=== PATIENT | male | born 1950 | race Caucasian/White ===

== ENCOUNTER 2018-06-11 11:19 | Outpatient (REF) | payer MEDICARE, OTHER, SELFPAY ==
[2018-06-11 19:49] LABS: Anion Gap 5.2 mmol/L (3-11); BUN 17 mg/dL (7-18); CO2 29.8 mmol/L (21.0-32.0); CREATININE 1.12 mg/dL (0.70-1.30); Calcium 9.3 mg/dL (8.5-10.1); Chloride 95 mmol/L (98-107); Glucose 123 mg/dL (70-100); Sodium 130 mmol/L (136-145)
== END 2018-06-11 11:20 ==
LOC: NCHCN 11:19
PROVIDERS: PCP Internal Medicine; Visit Provider Physician Assistant Medical
DX: I10 Essential (primary) hypertension (principal)
CPT/HCPCS: 80048

== ENCOUNTER 2019-05-29 13:14 | Outpatient (CLI) | payer MEDICARE, OTHER, SELFPAY ==
--- NOTE | 2019-05-29 13:50 | DI.RAD_ITS ---
SYMPTOMS/DIAGNOSIS: HIP LOCKING UP, LEFT HIP PAIN, M25.552, ? OSTEOARTHRITIS, M16.12 LEFT HIP AND PELVIS: Three views were obtained. There are prominent hypertrophic degenerative changes involving the lower lumbar spine with bilateral SI joint degenerative changes noted as well. There is mild narrowing of the cartilaginous joint spaces of both hips. Mild acetabular spurring noted bilaterally. No other significant bony abnormality seen. CONCLUSION: Mild DJD, both hips.
== END 2019-05-29 13:34 ==
PROVIDERS: PCP Internal Medicine; Visit Provider Chiropractor
DX: M25.552 Pain in left hip (principal); M16.0 Bilateral primary osteoarthritis of hip; M53.3 Sacrococcygeal disorders, not elsewhere classified
CPT/HCPCS: 73502

== ENCOUNTER 2019-07-09 15:43 | Outpatient (REF) | payer MEDICARE, OTHER, SELFPAY ==
[2019-07-09 20:18] LABS: Anion Gap 12.7 mmol/L (3-11); BUN 12 mg/dL (7-18); CO2 23.3 mmol/L (21.0-32.0); CREATININE 1.08 mg/dL (0.70-1.30); Calcium 9.8 mg/dL (8.5-10.1); Chloride 96 mmol/L (98-107); Glucose 110 mg/dL (70-100); Potassium 3.8 mmol/L (3.5-5.1); Sodium 132 mmol/L (136-145)
== END 2019-07-09 16:03 ==
LOC: NCHCN 15:43
PROVIDERS: PCP Internal Medicine; Visit Provider Nurse Practitioner Family
DX: I10 Essential (primary) hypertension (principal)
CPT/HCPCS: 80048

== ENCOUNTER 2020-04-05 18:35 | Outpatient (REF) | payer MEDICARE, OTHER, SELFPAY ==
[2020-04-05 20:10] LABS: ALT 40 U/L (16-63); AST 26 U/L (15-37); Alkaline Phosphatase 102 U/L (46-116); Anion Gap 7.1 mmol/L (3-11); BUN 15 mg/dL (7-18); Bilirubin, Total 0.8 mg/dL (0.2-1.0); CO2 27.9 mmol/L (21.0-32.0); CREATININE 1.01 mg/dL (0.70-1.30); Calcium 9.6 mg/dL (8.5-10.1); Chloride 97 mmol/L (98-107); Glucose 136 mg/dL (74-106); Potassium 3.9 mmol/L (3.5-5.1); Sodium 132 mmol/L (136-145); Total Protein 7.2 g/dL (6.4-8.2)
== END 2020-04-05 18:55 ==
LOC: NCHCN 18:35
PROVIDERS: PCP Internal Medicine; Visit Provider Nurse Practitioner Family
DX: I10 Essential (primary) hypertension (principal)
CPT/HCPCS: 80053

== ENCOUNTER 2020-05-11 12:35 | Outpatient (REF) | payer MEDICARE, OTHER, SELFPAY ==
[2020-05-11 19:27] LABS: Sodium 134 mmol/L (136-145)
== END 2020-05-11 12:55 ==
LOC: NCHCN 12:35
PROVIDERS: PCP Nurse Practitioner Family; Visit Provider Nurse Practitioner Family
DX: Z72.89 Other problems related to lifestyle (principal)
CPT/HCPCS: 84295

== ENCOUNTER 2020-10-25 08:55 | Day surgery (SDC) | payer MEDICARE, OTHER, SELFPAY ==
[2020-10-25 09:07] VITALS: BP 146/86; PULSE 74; RESP 17; TEMP 36.4; O2SAT 98
[2020-10-25] MEDS: Tropicam./Phenyleph. (1/2.5%) 5 ML BTL OD ×3 (09:22→09:36)
[2020-10-25] MEDS: Tetracaine 0.5% 4 ML BTL OD (10:19)
[2020-10-25] MEDS: Povidone-Iodine Ophth 30 ML BTL (10:20)
[2020-10-25] MEDS: Lidocaine 2% Jelly 6 ML SYR (10:20)
[2020-10-25] MEDS: Lidocaine 1% Pres-Free 5 ML VIAL (10:28)
[2020-10-25] MEDS: Balanced Salt Soln.-PLUS 500 ML BAG (10:33)
[2020-10-25] MEDS: Duovisc Viscoelastic System EACH 1 EACH (10:34)
--- NOTE | 2020-10-25 10:59 | W.PM.DSUDISC ---
Discharge Plan Disposition Patient Disposition: HOME Condition: Good Discharge Details Attending Provider: Gigi Alan Primary Care Provider: Damon Cunha Meds and New Rx's Prescriptions: No Action carvedilol 25 MG tablet 25 mg PO BID RF: 0 spironolactone 25 MG tablet 50 mg PO DAILY RF: 0 hydrochlorothiazide 12.5 MG tablet 25 mg PO DAILY RF: 0 multivitamin Tablet 1 tab PO DAILY RF: 0 amlodipine 10 mg Tablet 10 mg PO DAILY RF: 0 lovastatin 20 mg Tablet 20 mg PO QPM RF: 0 albuterol sulfate [ProAir HFA] 90 mcg/actuation Hfa Aerosol Inhaler 1 - 2 puff INHALATION DIRECTED RF: 0 diphenhydramine-acetaminophen [Tylenol PM Extra Strength] 25-500 mg Tablet 2 tab PO QHS PRNRF: 0 Spiriva with HandiHaler 18 mcg Capsule, W/Inhalation Device 1 cap INHALATION DAILY RF: 0 budesonide-formoterol [Symbicort] 160-4.5 mcg/actuation Hfa Aerosol Inhaler 2 puff INHALATION BID RF: 0 omeprazole 20 mg Tablet,Delayed Release (Dr/Ec) 20 mg PO DAILY RF: 0 cephalexin [Keflex] 500 mg Capsule 500 mg PO TID RF: 0 Discharge Instructions Stand Alone Forms: Post-op Topical Cataract Discharge Orders Discharge Orders: Discharge Order (Routine); Ordered 10/25/20 Ordered By: Gigi Alan DS: Diagnosis Discharge Diagnosis (1) Posterior subcapsular age-related cataract, right eye: Status: Resolved (2) Nuclear sclerotic cataract of right eye: Status: Resolved (3) Cortical cataract of right eye: Status: Resolved
--- NOTE | 2020-10-25 11:00 | W.PM.OP ---
Date of service: 10/25/20 Time of Service: 11:01 Operative Note Operative Note DATE OF PROCEDURE: 10/25/20 PRE-OP DIAGNOSIS: Nuclear/cortical/posterior subcapsular cataract, right eye Poorly dilating pupil, right eye POST-OP DIAGNOSIS: same PROCEDURE: 1. Cataract extraction by phacoemulsification with intraocular lens implantation, right eye, with pupillary expansion device SURGEON: Gigi Alan ANESTHESIA: MAC (with local sub-tenon's anesthetic injection) PATHOLOGY: none sent COMPLICATIONS: None Patient was transported to: same day Patient's condition: stable Implants: [employer] / [employer] Tecnis [id number] Indications: Progressive decreased vision due to cataract, right eye, with poorly dilating pupil Procedure Description: CATARACT SURGERY OPERATIVE REPORT PREOPERATIVE DIAGNOSIS: 1. Nuclear/cortical/posterior subcapsular cataract, right eye 2. Poorly dilating pupil, right eye POSTOPERATIVE DIAGNOSIS: Same OPERATION: 1. Cataract extraction using phacoemulsification with posterior chamber intraocular lens implant, right eye. 2. Pupillary dilation and iris stabilization using Malyugin Ring IOL: IOL Air Traffic Control Supervisor/Model: [employer] Marquis / VINCENT Tecnis [id number] IOL Power: + 23.0 diopters IOL Serial Number: [id number] Optic Diameter: 6.0mm Haptic/Overall Diameter: 13.0mm PHACO INFO: [employer] Technologiesurion Vision System with OZil and Active Fluidics Cumulative Dispersed Energy (CDE): 14.39 seconds SURGEON: Gigi Alan MD, ASHUTOSH ANESTHESIA: Monitored Anesthesia Care (MAC), with local sub-tenon's anesthetic infiltration COMPLICATIONS: None SPECIMENS: None INDICATIONS FOR PROCEDURE: The patient is a 69-year-old gentleman with history of progressive decreased vision in his right eye. He is noted to have a significant nuclear/cortical/posterior subcapsular cataract of the right eye. The option of cataract surgery was offered to patient and he wished to proceed. PROCEDURE: The correct surgical eye was identified and marked as the right eye and the pupil was dilated in the preoperative area using mydriatics and cycloplegics. The dilated pupil size was 4.0 mm. The patient elected to proceed without oral sedation. The patient was brought to the operating room where cardiopulmonary monitoring was instituted and surgical time-out was performed, confirming the correct operative eye and IOL power. Topical anesthesia was administered and ophthalmic povidone-iodine 5% was instilled into the conjunctival fornices. Lidocaine gel was applied to the cornea and the chacha-ocular area was prepped with Betadine 10% solution and draped in the usual sterile fashion for intraocular surgery, including an aperture drape. A Tegaderm transparent film dressing was cut in half and used to cover the lashes and lid margins. Care was taken to sequester the lashes and lid margins under the Tegaderm dressing. A lid speculum was placed between the lids of the operative eye and the Jose-Morgan operating microscope was maneuvered into position. Steve scissors were then used to make a conjunctival buttonhole approximately 6mm posterior to the limbus in the inferonasal quadrant. Blunt dissection was carried out to expose bare sclera, and a blunt-tipped sub-tenon?s anesthesia cannula was introduced and passed posteriorly along the globe where non-preserved plain lidocaine was injected into posterior sub-Tenon?s space. A sideport knife was used to make a paracentesis port inferiortemporally. Intraocular phenylephrine/lidocaine was injected in the anterior chamber. The anterior chamber was filled with Provisc. A 2.4mm keratome knife was used to create a half-thickness groove at the limbus and then to construct a three-plane near-clear corneal tunnel extending 2.0mm into clear cornea superiortemporally. A 6.25 mm Malyugin Ring was then inserted into the pupillary space and engaged with the Kuglen hook. A flap was raised on the anterior capsule and capsulorhexis forceps were used to complete a continuous curvilinear capsulorhexis of 5.0 mm. Capsule is noted to be quite thin with loose zonules. Balanced salt solution was then used to perform cortical cleaving hydrodissection and nuclear hydrodelineation until the lens could be freely rotated within the capsular bag. The lens nucleus was then disassembled and removed within the capsular bag and iris plane using phacoemulsification. Residual cortical material was removed using the 45-degree angled silicone I/A tip with 0.3mm port. The posterior capsule was carefully polished to remove as much residual lens epithelial cells as safely possible. The capsular bag was then inflated and the anterior chamber deepened with viscoelastic. The lens implant described above was inserted into the capsular bag using the VINCENT Pine Apple Injector. A Kuglen hook was used to dial the IOL into position. The Malyugin Ring was removed in the reverse order of its insertion. Residual viscoelastic was then removed first from posterior to the IOL, then from the anterior chamber using the I/A handpiece. The lens implant was noted to center nicely within the capsular bag. The incisions were stromally hydrated, and the anterior chamber was reformed using BSS. Then 0.1cc of moxifloxacin 5.0mg/ml were injected into the capsular bag and anterior chamber. The incisions were checked with a Weck spear and found to be secure. Several drops of ophthalmic povidone-iodine 5% were then applied to the eye followed by two drops of Imprimis combination prednisolone/moxifloxacin/nepafenac solution. The drapes were removed and a clear plastic protective eye shield was placed over the eye. The patient was then returned to Same Day Surgery in stable condition.
== END 2020-10-25 11:17 | disposition home or self-care (01) ==
PROVIDERS: PCP Internal Medicine; Visit Provider Ophthalmology
PROC: (CPT 66982; principal; 2020-10-25 10:45)
DX: H25.041 Posterior subcapsular polar age-related cataract, right eye (principal); H25.11 Age-related nuclear cataract, right eye; H25.011 Cortical age-related cataract, right eye; H57.09 Other anomalies of pupillary function; I10 Essential (primary) hypertension; J44.9 Chronic obstructive pulmonary disease, unspecified; K21.9 Gastro-esophageal reflux disease without esophagitis
CPT/HCPCS: 66982; V2632

== ENCOUNTER 2021-04-05 14:30 | Outpatient (REF) | payer MEDICARE, OTHER, SELFPAY ==
[2021-04-05 19:00] LABS: ALT 39 U/L (16-63); AST 27 U/L (15-37); Alkaline Phosphatase 130 U/L (46-116); Anion Gap 7.8 mmol/L (3-11); BUN 11 mg/dL (7-18); Bilirubin, Total 0.7 mg/dL (0.2-1.0); CO2 28.2 mmol/L (21.0-32.0); CREATININE 1.1 mg/dL (0.70-1.30); Calcium 9.8 mg/dL (8.5-10.1); Calculated LDL 96 mg/dL (<100); Chloride 99 mmol/L (98-107); Cholesterol 189 mg/dL (<200); Glucose 130 mg/dL (74-106); HDL Cholesterol 85 mg/dL (40-60); Potassium 4.2 mmol/L (3.5-5.1); Sodium 135 mmol/L (136-145); Total Protein 7.5 g/dL (6.4-8.2); Triglyceride 41 mg/dL (<150)
== END 2021-04-05 14:31 | disposition home or self-care (01) ==
LOC: NCHCN 14:30
PROVIDERS: PCP Internal Medicine; Visit Provider Nurse Practitioner Family
DX: I10 Essential (primary) hypertension (principal); E78.5 Hyperlipidemia, unspecified
CPT/HCPCS: 80053; 80061

== ENCOUNTER → 2022-04-18 01:22 | Outpatient (CLI) | payer MEDICARE, OTHER, SELFPAY ==
--- NOTE | 2022-04-18 11:00 | DI.NM_ITS ---
APPROVED REPORT Exam: Exercise Treadmill Patient Location: Out-Patient Room/Bed: Stress Nurse: Rosalva Kwan RN Ordering Provider:EARLENE MARTINEZ, Contact Number: [phone] BMI: 27.45 Baseline Rhythm: Sinus Rhythm Indications: DYSPNEA ON EXERTION Medical History Medical History: COPD, Former smoker, Heavy alcohol consumption, GERD, HTN Cardiac Medications: Spiriva, Spironolactone, Omeprazole, Lovastatin, Hydrochlorothiazide, Carvedilol , Symbicort, Amlodipine, Albuterol sulfate Allergies: No known drug allergies Cardiac Risk Factors: FHX of CAD, HTN, COPD, Smoking (former) Previous Cardiac Procedures: None Pretest Chest Pain Characteristics: None Exercise History: Indeterminate Physical Disabilities: Back Lung Sounds: Clear to auscultation, wheezing right lower lobe Heart Sounds: Regular Stress Test Details Test: Exercise stress testing was performed using a Jignesh protocol. Nuclear Acquisition: Rest Tc-99m/Stress Tc-99m 1 day Rest Isotope: Tc-99m Sestamibi. Dose: 9.5 Date: 04/18/2022 Injection Time: 1120 Stress Isotope: Tc-99m Sestamibi. Dose: 31.0 Date: 04/18/2022 Injection Time: 1326 HR Resting HR Supine: 67 bpm Max Heart Rate (APMHR): 148.545373 bpm Resting HR Standin bpm Target HR (85% APMHR): 125.277060 bpm Max HR Achieved: 138 bpm % of APMHR: 93.24 Recovery HR: 89 bpm HR response to stress: Normal HR response to stress Comment: Carvedilol held this AM. BP Resting BP Supine: 162/82 mmHg Resting BP Standin/84 mmHg Max BP: 184/80 mmHg Recovery BP: 158/78 mmHg BP response to stress: Normal blood pressure response to stress. ECG Resting ECG: Sinus Rhythm Ectopy: occasional PVC/PAC Stress ECG: Sinus Tachycardia ST Change: difficult to assess d/t significant artifact Arrhythmia: PVC couplet Recovery ECG: Sinus Rhythm Recovery ST Change: No significant ST segment changes noted Recovery Arrhythmia: occasional PAC Clinical Reason for Termination: Dyspnea Stress Symptoms: Dyspnea Exercise duration: 5 min24 sec Highest Stage Reached: Stage 2: 2.5 mph at 12% grade. Exercise capacity: 7.05 METs Nova Treadmill Score: 5 Rate Pressure Product: 28601 Stress ECG Conclusion 1. The resting electrocardiogram was within normal limits 2. The patient exercised on the Jignesh protocol and completed a workload of 7.05 METS, limited by shor tness of breath 3. Normal heart rate and blood pressure response to exercise. The patient achieved 98% of predicted heart rate for age 4. There was no electrocardiographic evidence of myocardial ischemia 5. There were no significant dysrhythmias 6. See MPI report Nova Treadmill Score is 5 which is Low risk. Stress Test Summary STAGE Time (mins) Speed (mph) Grade (%) HR BP SYMPTOMS METS Supine 67 162/82 Standing 84 164/84 SpO2 97% 1 3 1.7 10 118 182/90 SpO2 93% 4.6 1 min recovery 120 184/80 SpO2 97% 3 min recovery 103 180/78 6 min recovery 89 158/78 MPI Conclusion Normal myocardial perfusion without evidence of ischemia or prior infarction Reported EF is 44%. Wall motion is normal Radiologist Interpretation Radiologist Interpretation by: Damon Schaffer MD Interpretation Date/Time: 04/20/2022 16:13:44
== END ==
PROVIDERS: PCP Nurse Practitioner Family; Visit Provider Nurse Practitioner Family
DX: R06.00 Dyspnea, unspecified (principal)
CPT/HCPCS: 78452; 93017

== ENCOUNTER 2022-05-12 08:59 | Outpatient (CLI) | payer MEDICARE, OTHER, SELFPAY ==
--- NOTE | 2022-05-12 08:45 | RT.EKG_ITS ---
APPROVED REPORT Exam: Resting ECG Reason for Exam: HTN, SIMEON Patient Location: O HR:73 bpm ECG Measurements Heart Rate 73 AXIS UT 180 P 46 QRSd 91 QRS 8 QT 374 T 31 QTc 413 Conclusion Sinus rhythm...normal P axis, V-rate 50- 99 Normal Electrocardiogram
== END 2022-05-12 09:00 | disposition home or self-care (01) ==
LOC: DI.CARD 09:00
PROVIDERS: PCP Nurse Practitioner Family; Visit Provider Internal Medicine Cardiovascular Disease
DX: I10 Essential (primary) hypertension (principal); R06.00 Dyspnea, unspecified
CPT/HCPCS: 93010

== ENCOUNTER → 2022-05-12 12:55 | Outpatient (BNVA) | payer MEDICARE, OTHER, SELFPAY | PROVIDERS: PCP Nurse Practitioner Family; Referring Provider Nurse Practitioner Family; Visit Provider Internal Medicine Cardiovascular Disease | DX: Z87.891 Personal history of nicotine dependence (principal); Z82.49 Family history of ischemic heart disease and other diseases of the circulatory system; R06.00 Dyspnea, unspecified; I10 Essential (primary) hypertension; J44.9 Chronic obstructive pulmonary disease, unspecified | CPT/HCPCS: 93005; 99203 ==

== ENCOUNTER 2022-05-16 12:32 | Emergency (ER) | payer MEDICARE, OTHER, SELFPAY ==
[2022-05-16] VITALS (12 sets, daily range): BP systolic 123–151; BP diastolic 68–119; PULSE 88–96; RESP 1–26; TEMP 36.4; O2SAT 91–95
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
--- OUTSIDE RECORDS SUMMARY | 2022-05-16 12:54 | XMS_ITS | Encounter Summary ---
:1950 Author Organization [facility] Address [address] [place] [address] Care Team Providers Name Role Phone Unknown, Provider Primary Care Provider Encounter Details Date Type Department Care Team Description 12/15/2013 Results Only [facility]- Ana Paula Douglas MD [phone] [place] [id number] (Wo rk) Social History Tobacco Use Types Packs/Day Years Used Date Never Assessed Sex Assigned at Date Recorded Not on file documented as of this encounter Plan of Treatment Not on filedocumented as of this encounter Procedures Procedure Name Priority Date/Time Associated Diagnosis Comme nts CYTOPATHOLOGY Routine 12/15/2013 0:00 EST Results for this procedure are i n the results section . documented in this encounter Results CYTOPATHOLOGY (12/15/2013 0:00 EST) Pathology Report: CYTOPATHOLOGY REPORT [facility] Reports generated via electronic interface contain kenyetta ginal data; however they are lacking the format of the original re port. Caution should be taken when reading/interpreting unfo rmatted reports. Name: ? CLIFF GUZMAN ? Accession #: ? [id number] : ? 1950 (Age: 63) ??M ?Collect Date: ? 11/23 Location: ? [facility] ? Receive Date : ? 12/16/2013 Provider: ? ANA PAULA DAIGLE MD Copy to: ? CYTOLOGIC DIAGNOSIS: URINE, COLLECTION METHOD NOT SPECIFIED, CYTOLOGIC EVAL UATION: - ?Negative for malignant cells. - ? Reactive urothelial cells and acute infl ammatory cells present. ? Document reviewed and electronically signed by: ? CASS ELLIOTT MD Report Date: ??12/16/2013 14:30 By the signature above, the attending physician certif ies that he/she has personally conducted a gross and/or microscopic examin ation of the described specimens and rendered or confirmed the above diagnosi s. Specimen Type: ? Urine, NOS, Pooled x3 Clinical History: ? Hypertension, nocturia, bladder tumor ? Gross Description: ? 200 ccs of clear straw colored fluid were receiv ed and processed by selective cellular enhancement technique. ? End of Report Specimen Performing Organization Address City/State/ZIP Code Phon e Number [facility] [address] [place] [address] SERVICES [facility] [address] [place] [address] documented in this encounter Visit Diagnoses Not on filedocumented in this encounter Care Teams Sterile Supply Technician Relationship Specialty Start Date End Date Unknown, Provider, PCP - General 02/12/13 12/21/13 documented as of this encounter
--- OUTSIDE RECORDS SUMMARY | 2022-05-16 12:54 | XMS_ITS | Encounter Summary ---
:1950 Author Organization [facility] Address [address] [place] [address] Care Team Providers Name Role Phone Damon Elder MD Primary Care Provider Unavailable Encounter Details Date Type Department Care Team Description 09/20/2017 Results Only [facility] Nany Blevins MD Urology - [facility] [address] [address] [address], [place] [id number] (Wo rk) Social History Tobacco Use Types Packs/Day Years Used Date Never Assessed Sex Assigned at Date Recorded Not on file documented as of this encounter Plan of Treatment Not on filedocumented as of this encounter Procedures Procedure Name Priority Date/Time Associated Diagnosis Comme nts CYTOPATHOLOGY Routine 09/20/2017 0:00 EST Results for this procedure are i n the results section . documented in this encounter Results CYTOPATHOLOGY (09/20/2017 0:00 EST) Pathology Report: CYTOPATHOLOGY REPORT [facility] Reports generated via electronic interface contain kenyetta ginal data; SERVICES however they are lacking the format of the original re port. Caution should be taken when reading/interpreting unfo rmatted reports. Name: ? CLIFF GUZMAN ? Accession #: ? [id number] : ? 1950 (Age: [age]) ??M ?Collect Date: ? 08/24 Location: ? [facility] ? Receive Date : ? 09/21/2017 Provider: ? JACQUE BLEVINS MD Copy to: ? CYTOLOGIC DIAGNOSIS: URINE, COLLECTION METHOD NOT SPECIFIED, CYTOLOGIC EVAL UATION: - ??Non-diagnostic findings. See comment. ? COMMENT: The specimen is markedly hypocellular and has a low vo lume. Based on recent literature, volumes less than 25 ml have been as sociated with lower detection rate of high grade urothelial carcinoma in voided urine. A repeat urine sample may be indicated. Dr. Mack 09/21/2017 11:19 AM Document reviewed and electronically signed by: ? NAVIN COSTELLO MD Report Date: ??09/21/2017 17:20 By the signature above, the attending physician certif ies that he/she has personally conducted a gross and/or microscopic examin ation of the described specimens and rendered or confirmed the above diagnosi s. Specimen Type: ? Urine, NOS Clinical History: ? clinical diagnosis code: ??D41.4. ? Gross Description: ? 15ccs of clear yellow fluid were received and pr ocessed by selective cellular enhancement technique. ? End of Report Specimen Performing Organization Address City/State/ZIP Code Phon e Number [facility] [address] [place] [address] SERVICES documented in this encounter Visit Diagnoses Not on filedocumented in this encounter Care Teams Assignment Clerk Relationship Specialty Start Date End Date Damon Elder MD PCP - General 12/22/13 documented as of this encounter
--- OUTSIDE RECORDS SUMMARY | 2022-05-16 12:54 | XMS_ITS | Encounter Summary ---
:1950 Author Organization [facility] Address [address] [place] [address] Care Team Providers Name Role Phone Unavailable Primary Care Provider Unavailable Encounter Details Date Type Department Care Team Description 02/10/2013 Results Only [facility] Walt Daigle MD Services - [address] [address] Social History Tobacco Use Types Packs/Day Years Used Date Never Assessed Sex Assigned at Date Recorded Not on file documented as of this encounter Plan of Treatment Not on filedocumented as of this encounter Procedures Procedure Name Priority Date/Time Associated Diagnosis Comme nts CYTOPATHOLOGY Routine 02/10/2013 0:00 EDT Results for this procedure are i n the results section . documented in this encounter Results CYTOPATHOLOGY (02/10/2013 0:00 EDT) Pathology Report: CYTOPATHOLOGY REPORT [facility] Reports generated via electronic interface contain kenyetta ginal data; however they are lacking the format of the original re port. Caution should be taken when reading/interpreting unfo rmatted reports. Name: ? CLIFF GUZMAN ? Accession #: ? [id number] : ? 1950 (Age: 62) ??M ?Collect Date: ? 01/21 Location: ? [facility] ? Receive Date : ? 02/11/2013 Provider: ? ANA PAULA DAIGLE MD Copy to: ? CYTOLOGIC DIAGNOSIS: ? Urine, not otherwise specified, cytologic evalu ation: - No malignant cells identified. Document reviewed and electronically signed by: ? FRANCESCO BYNUM MD Report Date: ??02/11/2013 16:29 By the signature above, the attending physician certif ies that he/she has personally conducted a gross and/or microscopic examin ation of the described specimens and rendered or confirmed the above diagnosi s. Specimen Type: ? Urine, NOS Clinical History: ? Nocturia; HTN; HCM ? Gross Description: ? 40ccs of clear yellow fluid were received and p rocessed by selective cellular enhancement technique. ? End of Report Specimen Performing Organization Address City/State/ZIP Code Phon e Number [facility] [address] [place] [address] SERVICES [facility] [address] [place] [address] documented in this encounter Visit Diagnoses Not on filedocumented in this encounter
--- OUTSIDE RECORDS SUMMARY | 2022-05-16 12:54 | XMS_ITS | Encounter Summary ---
:1950 Author Organization [facility] Address [address] [place] [address] Care Team Providers Name Role Phone Unknown, Provider Primary Care Provider Encounter Details Date Type Department Care Team Description 02/11/2013 Results Only [facility] Walt Daigle MD Services - [place] [address] [address] Social History Tobacco Use Types Packs/Day Years Used Date Never Assessed Sex Assigned at Date Recorded Not on file documented as of this encounter Plan of Treatment Not on filedocumented as of this encounter Procedures Procedure Name Priority Date/Time Associated Diagnosis Comme [facility] CYTOPATHOLOGY Routine 02/11/2013 0:00 EDT Results for this procedure are i n the results section . documented in this encounter Results CYTOPATHOLOGY (02/11/2013 0:00 EDT) Pathology Report: CYTOPATHOLOGY REPORT [facility] Reports generated via electronic interface contain kenyetta ginal data; however they are lacking the format of the original re port. Caution should be taken when reading/interpreting unfo rmatted reports. Name: ? CLIFF GUZMAN ? Accession #: ? [id number] : ? 1950 (Age: 62) ??M ?Collect Date: ? 01/21 Location: ? [facility] ? Receive Date : ? 02/12/2013 Provider: ? ANA PAULA DAIGLE MD Copy to: ? CYTOLOGIC DIAGNOSIS: ? Urine, collection method not specified, cytolog ic evaluation: 1. ?No malignant cells identified. 2. ? Urothelial cells and squamous cells present. 3. ? Chronic inflammation noted. Document reviewed and electronically signed by: ? TAMEKA [facility] Report Date: ??02/12/2013 16:56 By the signature above, the attending physician certif ies that he/she has personally conducted a gross and/or microscopic examin ation of the described specimens and rendered or confirmed the above diagnosi s. Specimen Type: ? Urine, NOS Clinical History: ? Nocturia; HTN; HCM ? Gross Description: ? 30ccs of clear yellow fluid were received and p rocessed by selective cellular enhancement technique. ? End of Report Specimen Performing Organization Address City/State/ZIP Code Phon e Number [facility] [address] [place] [address] SERVICES [facility] [address] [place] [address] documented in this encounter Visit Diagnoses Not on filedocumented in this encounter Care Teams Stranner Relationship Specialty Start Date End Date Unknown, Provider, PCP - General 02/12/13 12/21/13 documented as of this encounter
--- OUTSIDE RECORDS SUMMARY | 2022-05-16 12:54 | XMS_ITS | Clinical Summary ---
:1950 Author Organization [facility] [place] [address] Care Team Providers Name Role Phone Kristin aMn SANDRA Primary Care Provider Allergies No known active allergies Medications Medication Sig Dispensed Refills Start Date End Date Status amLODIPine (Norvasc) 10 mg Tablet 0 2021 Active Symbicort 160-4.5 mcg/actuation HFA 0 03/10/2021 Active Aerosol Inhaler carvediloL (Coreg) 25 mg Tablet 0 12/28/19 22 Active hydroCHLOROthiazide (Hydrodiuril) 25 0 05/2022 Active mg Tablet lovastatin (MEVACOR) 20 mg Tablet 0 2020 Active omeprazole (PriLOSEC) 20 mg Capsule, 0 Active Delayed Release(E.C.) spironolactone (ALDACTONE) 50 mg 0 021 Active Tablet Spiriva with HandiHaler 18 mcg 0 2 Active Capsule, w/Inhalation Device Social History Tobacco Use Types Packs/Day Years Used Date Former Smoker Cigarettes Quit: 04/19/20 08 Smokeless Tobacco: Never Used Sex Assigned at Date Recorded Not on file Plan of Treatment Health Maintenance Due Date Last Done Comments Covid-19 Vaccine (#1) 1954 Hepatitis C Screening 1967 Tdap adult 1968 Tetanus vaccine 1968 Colonoscopy 1994 Zoster vaccine (1 of 2) 1999 Advance Directive 2004 AAA Screen 2014 Pneumoccocal Vaccine: 65+ (1 - PCV) 2014 Influenza (Flu) vaccine (1 of 1 - Influenza standard 06/22/2022 series) Insurance Payer Benefit Plan / Subscriber ID Effective Dates Phone Addre ss Type Group COLONIAL MANUELA COLONIAL MANUELA [id number] 2014-Jasson [address] [place] [address] MEDICARE MEDICARE PART [id number] 2021-Jannette [phone] [place] [address] Care Teams Tacking Stitch Remover Relationship Specialty Start Date End Date Kristin Man, SANDRA PCP - General Family Medicine 10/12/21 [address] [place], [place] [id number]
--- OUTSIDE RECORDS SUMMARY | 2022-05-16 12:54 | XMS_ITS | Encounter Summary ---
:1950 Author Organization [facility] Address [address] [place] [address] Care Team Providers Name Role Phone Damon Elder MD Primary Care Provider Unavailable Encounter Details Date Type Department Care Team Description 09/20/2017 Hospital Encounter [facility] [place] Unknown, Provider, Marquez Denis MD [address] [facility] [phone] [place] [address] (Work) [phone] Social History Tobacco Use Types Packs/Day Years Used Date Never Assessed Sex Assigned at Date Recorded Not on file documented as of this encounter Discharge Disposition Disposition Code Departure Means Destination Home or Self Half-Way documented in this encounter Plan of Treatment Not on filedocumented as of this encounter Visit Diagnoses Not on filedocumented in this encounter Care Teams Utility Technician Relationship Specialty Start Date End Date Damon Elder MD PCP - General 12/22/13 documented as of this encounter
--- OUTSIDE RECORDS SUMMARY | 2022-05-16 12:54 | XMS_ITS | Encounter Summary ---
:1950 Author Organization [facility] Address [address] [place] [address] Care Team Providers Name Role Phone Unknown, Provider Primary Care Provider Encounter Details Date Type Department Care Team Description 12/18/2013 Hospital Encounter [facility] - S Unknown, Pro Larissa garibay MD [address] [facility] [phone] [place] [address] (Work) [phone] Social History Tobacco Use Types Packs/Day Years Used Date Never Assessed Sex Assigned at Date Recorded Not on file documented as of this encounter Discharge Disposition Disposition Code Departure Means Destination Home or Self Senior Living documented in this encounter Plan of Treatment Not on filedocumented as of this encounter Visit Diagnoses Not on filedocumented in this encounter Care Teams Emission Technician Relationship Specialty Start Date End Date Unknown, Provider, PCP - General 02/12/13 12/21/13 documented as of this encounter
--- OUTSIDE RECORDS SUMMARY | 2022-05-16 12:54 | XMS_ITS | Encounter Summary ---
:1950 Author Organization [facility] Address [address] [place] [address] Care Team Providers Name Role Phone Damon Elder MD Primary Care Provider Unavailable Encounter Details Date Type Department Care Team Description 03/29/2020 Lab Requisition [facility] Fred Riggs for Pathology & MD Bo screening for other Laboratory Medicine - [address] [place] viral diseases [facility] [address] [facility] [address] [place] [address] [place], [place] [phone] Social History Tobacco Use Types Packs/Day Years Used Date Never Assessed Sex Assigned at Date Recorded Not on file documented as of this encounter Plan of Treatment Not on filedocumented as of this encounter Procedures Procedure Name Priority Date/Time Associated Diagnosis Comme nts COVID-19 DARWIN Today 03/29/2020 9:00 EDT Encounter for Result s for this screening for other procedur e are in the viral diseases results secti on. documented in this encounter Results COVID-19 DARWIN (03/29/2020 9:00 EDT) COVID-19 DARWIN Nasopharynx [facility] Specimen Source LABORATORIES COVID-19 DARWIN Undetected Undetected [facility] Result Comment: LABORATORIES SARS-CoV-2 RNA absent. This result does not rule out COVID-19 in the patient, as the sensitivity of the arash t depends on the timing of the specimen collection and t he quality of the specimen. Result should be correlated w ith patient's history and clinical presentation. ADDITIONAL INFORMATION ------ This test using the judy SARS-CoV-2 assay ([employer] performed on the judy 6800 System has received Emergency Use Authorization (EUA) by the U.S. Food and Drug Administration, and is modified from the senior php web developer's instructions with a bridging study. Performance characteristics were verified by [facility] in a manner consistent with CLIA requirements. Fact sheets for this Emergency Use Authorization (EUA) assay can be found at the following links: For Healthcare Providers: https://www.fda.gov/media/326008/download For Patients: https://www.fda.gov/media/700985/downloa d Test Performed by: [facility] - [address] [address] Administrator Of Home Health: Arnaldo Wilson M.D. Ph.D.; CLIA# [id number] Specimen Swab - Entire nasopharynx (body structur e) Performing Organization Address City/State/[facility] Code Phon e Number [facility] [address] [place] [address] documented in this encounter Visit Diagnoses Diagnosis Encounter for screening for other viral diseases documented in this encounter Care Teams School Photograph Editor Relationship Specialty Start Date End Date Damon Elder MD PCP - General 12/22/13 documented as of this encounter
--- OUTSIDE RECORDS SUMMARY | 2022-05-16 12:54 | XMS_ITS | Encounter Summary ---
:1950 Author Organization [facility] Address [address] [place] [address] Care Team Providers Name Role Phone Unavailable Primary Care Provider Unavailable Encounter Details Date Type Department Care Team Description 11/20/2006 Results Only [facility] - Ana Paula Olivier MD conversion [address] [place] [address] Social History Tobacco Use Types Packs/Day Years Used Date Never Assessed Sex Assigned at Date Recorded Not on file documented as of this encounter Plan of Treatment Not on filedocumented as of this encounter Procedures Procedure Name Priority Date/Time Associated Diagnosis Comme nts CYTOPATHOLOGY Routine 11/20/2006 0:00 EST Results for this procedure are i n the results section . documented in this encounter Results CYTOPATHOLOGY (11/20/2006 0:00 EST) Pathology Report: CYTOPATHOLOGY REPORT [facility] Reports generated via electronic interface contain kenyetta ginal data; however they are lacking the format of the original re port. Caution should be taken when reading/interpreting unfo rmatted reports. Name: ? CLIFF GUZMAN ? Accession #: ? [id number] : ? 1950 (Age: 55) ??M ?Collect Date: ? 10/24 Location: ? [facility] ? Receive Date : ? 11/21/2006 Provider: ? ANA PAULA DAIGLE MD Copy to: ? CYTOLOGIC DIAGNOSIS: ? Urine, voided, cytologic evaluation: 1. ?Negative for malignant cells. 2. ? Squamous and acute inflammatory cells present . Document reviewed and electronically signed by: ? Jhony Ballesteros MD Report Date: ??11/21/2006 15:12 By the signature above, the attending physician certif ies that he/she has personally conducted a gross and/or microscopic examin ation of the described specimens and rendered or confirmed the above diagnosi s. Specimen Type: ? Urine, Voided Clinical History: ? Hematuria ? Gross Description: ? 40cc' s of clear yellow fluid were receiv ed and processed by selective cellular enhancement technique. ? End of Report Specimen Performing Organization Address City/State/ZIP Code Phon e Number [facility] [address] [place] [address] SERVICES [facility] [address] [place] [address] documented in this encounter Visit Diagnoses Not on filedocumented in this encounter
--- OUTSIDE RECORDS SUMMARY | 2022-05-16 12:54 | XMS_ITS | Encounter Summary ---
:1950 Author Organization [facility] Address [address] [place] [address] Care Team Providers Name Role Phone Unavailable Primary Care Provider Unavailable Encounter Details Date Type Department Care Team Description 11/19/2006 Results Only [facility] - Ana Paula Olivier MD conversion [address] [place] [address] Social History Tobacco Use Types Packs/Day Years Used Date Never Assessed Sex Assigned at Date Recorded Not on file documented as of this encounter Plan of Treatment Not on filedocumented as of this encounter Procedures Procedure Name Priority Date/Time Associated Diagnosis Comme nts CYTOPATHOLOGY Routine 11/19/2006 0:00 EST Results for this procedure are i n the results section . documented in this encounter Results CYTOPATHOLOGY (11/19/2006 0:00 EST) Pathology Report: CYTOPATHOLOGY REPORT [facility] Reports generated via electronic interface contain kenyetta ginal data; however they are lacking the format of the original re port. Caution should be taken when reading/interpreting unfo rmatted reports. Name: ? CLIFF GUZMAN ? Accession #: ? [id number] : ? 1950 (Age: 55) ??M ?Collect Date: ? 10/23 Location: ? [facility] ? Receive Date : ? 11/20/2006 Provider: ? ANA PAULA DAIGLE MD Copy to: ? CYTOLOGIC DIAGNOSIS: ? Urine, voided, cytologic evaluation: - ??Abnormal groupings. ??See comment. ? COMMENT: ? Microscopic examinati on shows overall very scant cellularity. ??Three or four small cell groupings ar e identified, the component cells ranging in number from 7 to 9 in each group. ??Cohesion of urothelial ce lls is considered an unusual/abnormal finding in a voided urine, and may re quire further investigation, as clinically indicated. (Dr. Stringer)/m pl ? Document reviewed and electronically signed by: ? TAMEKA STRINGER MD [facility] Report Date: ??11/21/2006 16:27 By the signature above, the attending physician certif ies that he/she has personally conducted a gross and/or microscopic examin ation of the described specimens and rendered or confirmed the above diagnosi s. Specimen Type: ? Urine, Voided Clinical History: ? Hematuria ? Gross Description: ? 40 cc' s of clear flu id were received and processed by selective cellular enhancement technique. ? End of Report Specimen Performing Organization Address City/State/ZIP Code Phon e Number [facility] [address] [place] [address] SERVICES [facility] [address] [place] [address] documented in this encounter Visit Diagnoses Not on filedocumented in this encounter
--- OUTSIDE RECORDS SUMMARY | 2022-05-16 12:54 | XMS_ITS | Encounter Summary ---
:1950 Author Organization [facility] Address [address] [place] [address] Care Team Providers Name Role Phone Unknown, Provider Primary Care Provider Encounter Details Date Type Department Care Team Description 02/12/2013 Results Only [facility] Walt Daigle MD Services - [place] [address] [address] Social History Tobacco Use Types Packs/Day Years Used Date Never Assessed Sex Assigned at Date Recorded Not on file documented as of this encounter Plan of Treatment Not on filedocumented as of this encounter Procedures Procedure Name Priority Date/Time Associated Diagnosis Comme [facility] CYTOPATHOLOGY Routine 02/12/2013 0:00 EDT Results for this procedure are i n the results section . documented in this encounter Results CYTOPATHOLOGY (02/12/2013 0:00 EDT) Pathology Report: CYTOPATHOLOGY REPORT [facility] Reports generated via electronic interface contain kenyetta ginal data; however they are lacking the format of the original re port. Caution should be taken when reading/interpreting unfo rmatted reports. Name: ? CLIFF GUZMAN ? Accession #: ? [id number] : ? 1950 (Age: 62) ??M ?Collect Date: ? 01/21 Location: ? [facility] ? Receive Date : ? 02/13/2013 Provider: ? ANA PAULA DAIGLE MD Copy to: ? CYTOLOGIC DIAGNOSIS: ? Urine, collection methodology not stated, cytol ogic evaluation: 1. ?No malignant cells present. 2. ? Degenerated urothelial cells. 3. ? Acute inflammation, bacteria, and mature squa mous cells present. ?? Document reviewed and electronically signed by: ? NARAYAN BAUTISTA MD Report Date: ??02/13/2013 15:38 By the signature above, the attending physician certif ies that he/she has personally conducted a gross and/or microscopic examin ation of the described specimens and rendered or confirmed the above diagnosi s. Specimen Type: ? Urine, NOS Clinical History: ? Nocturia; HTN; HCM ? Gross Description: ? 40 cc of clear yellow fluid were received and p rocessed by selective cellular enhancement technique. ? End of Report Specimen Performing Organization Address City/State/[facility] Code Phon e Number [facility] [address] [place] [address] SERVICES [facility] [address] [place] [address] documented in this encounter Visit Diagnoses Not on filedocumented in this encounter Care Teams Welder Apprentice Combination Relationship Specialty Start Date End Date Unknown, Provider, PCP - General 02/12/13 12/21/13 documented as of this encounter
--- OUTSIDE RECORDS SUMMARY | 2022-05-16 12:54 | XMS_ITS | Encounter Summary ---
:1950 Author Organization [facility] Address [address] [place] [address] Care Team Providers Name Role Phone Unavailable Primary Care Provider Unavailable Encounter Details Date Type Department Care Team Description 05/03/2011 Results Only [facility] Urology Jared Krishnan, - [facility] [address] [facility] [address] [place] [address] [place], [place] [phone] (Wo rk) Social History Tobacco Use Types Packs/Day Years Used Date Never Assessed Sex Assigned at Date Recorded Not on file documented as of this encounter Plan of Treatment Not on filedocumented as of this encounter Procedures Procedure Name Priority Date/Time Associated Diagnosis Comme [facility] CYTOPATHOLOGY Routine 05/03/2011 0:00 EDT Results for this procedure are i n the results section . documented in this encounter Results CYTOPATHOLOGY (05/03/2011 0:00 EDT) Pathology Report: CYTOPATHOLOGY REPORT ? [facility] Reports generated via electr onic interface contain original data; ? however they are lacking the format of the original report. ? Caution should be taken when reading/interpreting unformatted reports. ? Name: ? CLIFF GUZMAN ? Accession #: ? [id number] ? : ? 1950 (Age: 60) ??M ?Collect Date: ? 05/03/2011 ? Location: ? [facility] ? Receive Date: ? 05/04/2011 ? Provider: ? A ZEESHAN WILFRID NLER MD ? Copy to: ?ANA PAULA W WO OD MD ? CYTOLOGIC DIAGNOSIS: ? Urine, barbotage, cyt ologic evaluation: ? 1. ?Negative fo r malignant cells. ? 2. ? Reactive urothelial cells present, consistent with instrumentation ? effect. ? Document reviewed and electr onically signed by: ? GOLDIE L CIOLINO MD ? Report Date: ??05/05/2011 08 :03 ? By the signature above, the attending physician certifies that he/she has ? personally conducted a gross and/or microscopic examination of the described ? specimens and rendered or co nfirmed the above diagnosis. ? Specimen Type: ? Urine, Barbotage ? Clinical History: ? History of bladder tu mor. ? Fax results to: [phone] ? Gross Description: ? 35 cc of clear yellow fluid were received and processed by selective ? cellular enhancement techniq ue. ? End of Report ? Specimen Performing Organization Address City/State/ZIP Code Phon e Number [facility] [address] [place] [address] SERVICES [facility] [address] [place] [address] documented in this encounter Visit Diagnoses Not on filedocumented in this encounter
--- OUTSIDE RECORDS SUMMARY | 2022-05-16 12:54 | XMS_ITS | Encounter Summary ---
:[address] [facility] Address [address] [place] [address] Care Team Providers Name Role Phone Ana Paula Daigle MD Primary Care Provider Unavailable Encounter Details Date Type Department Care Team Description 01/21/2016 Results Only [facility] Ana Paula Daigle MD [phone] Social History Tobacco Use Types Packs/Day Years Used Date Never Assessed Sex Assigned at Date Recorded Not on file documented as of this encounter Plan of Treatment Not on filedocumented as of this encounter Procedures Procedure Name Priority Date/Time Associated Diagnosis Comme nts CYTOPATHOLOGY Routine 01/21/2016 0:00 EDT Results for this procedure are i n the results section . documented in this encounter Results CYTOPATHOLOGY (01/21/2016 0:00 EDT) Pathology Report: CYTOPATHOLOGY REPORT [facility] Reports generated via electronic interface contain kenyetta ginal data; SERVICES however they are lacking the format of the original re port. Caution should be taken when reading/interpreting unfo rmatted reports. Name: ? CLIFF GUZMAN ? Accession #: ? [id number] : ? 1950 (Age: [age]) ??M ?Collect Date: ? 2015 Location: ? [facility] ? Receive Date : ? 01/24/2016 Provider: ? ANA PAULA DAIGLE MD Copy to: ? CYTOLOGIC DIAGNOSIS: URINE, VOIDED, POOLED X3, CY TOLOGIC EVALUATION:- No malignant cells identified. Document reviewed and electronically signed by: ? FRANCESCO BYNUM MD Report Date: ??01/25/2016 09:48 By the signature above, the attending physician certif ies that he/she has personally conducted a gross and/or microscopic examin ation of the described specimens and rendered or confirmed the above diagnosi s. Specimen Type: ? Urine, NOS, Pooled x 3 Clinical History: ? Hypertension; bladder tumor; prostate cancer screening ; IFG ? Gross Description: ? 200ccs of clear yellow fluid were receiv ed and processed by selective cellular enhancement technique. ? End of Report Specimen Performing Organization Address City/State/ZIP Code Phon e Number [facility] [address] [place] [address] SERVICES documented in this encounter Visit Diagnoses Not on filedocumented in this encounter Care Teams Telephone Installer Relationship Specialty Start Date End Date Ana Paula Daigle MD PCP - General 12/22/13 documented as of this encounter
--- NOTE | 2022-05-16 13:00 | RT.EKG_ITS ---
APPROVED REPORT Exam: Resting ECG Reason for Exam: shortness of breath Patient Location: E HR:89 bpm ECG Measurements Heart Rate 89 AXIS SC 203 P 68 QRSd 99 QRS 46 QT 357 T 54 QTc 434 Conclusion Sinus rhythm...normal P axis, V-rate 60- 99
--- NOTE | 2022-05-16 13:00 | DI.RAD_ITS ---
Exam(s) XR PORTABLE CHEST AP EXAM: XR PORTABLE CHEST AP CLINICAL HISTORY: cough TECHNIQUE: 2D digital imaging was performed of the chest. One image was obtained. An AP view was ob tained. COMPARISON: No exams were available for comparison FINDINGS: MEDIASTINUM: Normal. HEART: Normal. PULMONARY VASCULATURE: Normal. LUNGS: Clear. PLEURAL SPACE: No pleural effusion or pneumothorax. BONE:Within normal limits for the patient's age. OTHER FINDINGS:Normal. IMPRESSION: No acute pulmonary findings. DATA REPOSITORY: RADIATION DOSE DELIVERED:
--- NOTE | 2022-05-16 13:12 | ED.GENADUL_ITS ---
Discharge Plan Disposition Patient Disposition: HOME Condition: Stable Discharge Details Clinical Impression: COPD exacerbation, Shortness of breath Primary Care Provider: Kristin Man ED Provider: Johan Dey Home Meds and New Rx's Prescriptions: New amoxicillin-pot clavulanate 875-125 mg tablet 1 tab PO BID Qty: 14 0RF Continued carvedilol 25 MG tablet 25 mg PO BID spironolactone 25 MG tablet 50 mg PO DAILY hydrochlorothiazide 12.5 MG tablet 25 mg PO DAILY multivitamin Tablet 1 tab PO DAILY amlodipine 10 mg Tablet 10 mg PO DAILY lovastatin 20 mg Tablet 20 mg PO QPM albuterol sulfate [ProAir HFA] 90 mcg/actuation Hfa Aerosol Inhaler 1 - 2 puff INHALATION DIRECTED diphenhydramine-acetaminophen [Tylenol PM Extra Strength] 25-500 mg Tablet 2 tab PO QHS PRN Spiriva with HandiHaler 18 mcg Capsule, W/Inhalation Device 1 cap INHALATION DAILY budesonide-formoterol [Symbicort] 160-4.5 mcg/actuation Hfa Aerosol Inhaler 2 puff INHALATION BID omeprazole 20 mg Tablet,Delayed Release (Dr/Ec) 20 mg PO DAILY Discharge Instructions Instructions: COPD (Chronic Obstructive Pulmonary Disease) (ED) Additional Instructions: follow up with your primary care provider within 1 week if you feel more ill, have worsening shortness of breath or chest pain return to the emergency department Medical Decision Making 71 yo male with hx of copd who has had dyspnea with exertion chronically comes in with cough and feeling more short of breath the past 24 hours. Saw cardiology last Sunday and felt his dyspnea exertion was more related to his copd given reassuring recent myocardial perfusion scan. He states he has had increased dyspnea with cough for 24 hours. Denies chest pain, fevers, chills. He arrives speaking in full sentences in no distress and has intermittent dry cough. He has wheezing at the bases bilaterally on lung exam, no leg swelling, no calf tenderness. No b lines on bedside u/s of his lungs, normal appearing EF and no pericardial effusion. His symptoms seem most consistent with copd exacerbation, will treat with duoneb, solumedrol and obtain cxr and covid test. No chest pain so doubt acs but will obtain ecg and troponin. No tachycardia, pleuritic chest pain or evidence of DVT so doubt PE and exam and history more consistent with copd exacerbation pt feels better after neb and steroids, xray unremarkable, mildly low magnesium and sodium. Troponin negative and given it's been over a day do not feel repeat troponin indicated. He is stable for d/c, will start him on antibiotics as well for increased cough. He did sustain an abrasion to the anterior right lower leg from hitting it on a trailer hitch, no warmth or significant erythema so do not feel it is infected. He has not had a tetanus vaccine for over 10 years so will update this. Advised to f/u with pcp and return precautions given Differential Diagnosis Differential Diagnosis: copd, covid, pneumonia Medical Records Medical records reviewed: Yes I reviewed the patient's medical records. Imaging Data Radiologic Study: Attestation: I personally reviewed and interpreted this imaging study as follows: Imaging: X-Ray Radiologist's impression: no acute findings Lab Data Lab results reviewed: Yes I reviewed the patient's lab results. ECG Data Attestation: I personally reviewed and interpreted this ECG (s) as follows: Prior ECG tracings: available for review Interpretation: sinus rhythm, rate of [address] t wave ischemic findings HPI General Mode of arrival: ambulatory . Date/Time Provider Initiated Documentation: 05/16/22 12:52 . Limitations to Documentation: no limitations . Information obtained by: patient . History of Present Illness 71 year old M presents to the emergency department with the chief complaint of cough, described as moderate, Patient started experiencing this day(s) (1) and it has been intermittent. No relieving factors improve symptom(s), No exacerbating factors reported . Patient notes shortness of breath; denies chest pain and fever/chills. Patient did receive the following treatments prior to arrival, none Related Data Home Medications Medication Instructions Recorded Confirmed carvedilol 25 mg tablet 25 mg PO BID 12/18/13 05/16/22 hydrochlorothiazide 12.5 mg tablet 25 mg PO DAILY 12/18/13 05/16/22 spironolactone 25 mg tablet 50 mg PO DAILY 12/18/13 05/16/22 albuterol sulfate 90 mcg/actuation 1 - 2 puff inhalation DIRECTED 10/19/20 05/16/22 aerosol inhaler (ProAir HFA) amlodipine 10 mg tablet 10 mg PO DAILY 10/19/20 05/16/22 budesonide-formoterol HFA 160 2 puff inhalation BID 10/19/20 05/16/22 mcg-4.5 mcg/actuation aerosol inhaler (Symbicort) diphenhydramine 25 2 tab PO QHS PRN 10/19/20 05/16/22 mg-acetaminophen 500 mg tablet (Tylenol PM Extra Strength) lovastatin 20 mg tablet 20 mg PO QPM 10/19/20 05/16/22 multivitamin 1 tab PO DAILY 10/19/20 05/16/22 omeprazole 20 mg tablet,delayed 20 mg PO DAILY 10/19/20 05/16/22 release tiotropium bromide 18 mcg capsule 1 cap inhalation DAILY 10/19/20 05/16/22 with inhalation device (Spiriva with HandiHaler) amoxicillin 875 mg-potassium 1 tab PO BID #14 tabs 05/16/22 clavulanate 125 mg tablet Previous Rx's Medication Instructions Recorded amoxicillin 875 mg-potassium 1 tab PO BID #14 tabs 05/16/22 clavulanate 125 mg tablet Allergies Allergy/AdvReac Type Severity Reaction Status Date / Time No Known Allergies Allergy Unverified 05/16/22 12:49 General Stated Complaint: RespSymp HESHAM: 3 Review of Systems All systems reviewed & are unremarkable except as noted in HPI and below Constitutional Constitutional: Denies chills, Denies fever(s) and Denies weakness Eyes Eyes: Denies loss of vision ENT Ears, Nose, Mouth, and Throat: Denies change in voice Cardiovascular Cardiovascular: Denies chest pain Gastrointestinal Gastrointestinal: Denies abdominal pain, Denies nausea and Denies vomiting Musculoskeletal Musculoskeletal: Denies joint swelling Neurologic Neurologic: Denies loss of vision and Denies weakness PFSH All Active Problems (Updated 05/16/22 @ 15:13 by Johan Dey MD) COPD exacerbation (Acute) Shortness of breath (Acute) SIMEON (dyspnea on exertion) (Acute) Medical History Adrenal adenoma Alcohol consumption heavy Bladder tumor COPD (chronic obstructive pulmonary disease) Former smoker GERD (gastroesophageal reflux disease) Hemorrhoid Hypertension Lactose intolerance Rotator cuff impingement syndrome Surgical History History of rectal surgery rectal prolapse repair 05/2019 History of surgery on arm left arm surgery/ fracture age 11 History of tonsillectomy Social History (Updated 05/12/22 @ 13:15 by Osiel Tay RN) Smoking/Tobacco Use Status: Former Tobacco Use Quit Date: 10/22/06 Smoking risk assessment performed?: Yes Alcohol Intake: current Alcohol Intake frequency: 3 or more drinks per day Alcohol type: beer Drug use: Never Substance use type: does not use Household members: spouse 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 [employer] Pets and animals: Yes Pets and animals: cat(s) What is your relationship status?: Panel score (0-1 are the most socially isolated patients): 1 Do you feel safe at home: Yes Do you feel safe in your relationship?: Yes Exam Const General: no acute distress Orientation: alert HENMT Head: normal to inspection Ears: external ears normal General nose exam: external nose normal Mouth: moist mucous membranes Eyes General: appearance normal, both eyes and all related structures Neck Neck: normal visual inspection Resp Effort & Inspection: normal respiratory effort and able to speak in complete sentences Cardio Rate: regular rate Skin General skin exam: no rashes or lesions noted Neuro General: patient alert and patient oriented x3 Extrem General: normal to inspection Psych Mental Status: mental status grossly normal Course Vital Signs Vital signs: Vital Signs Temperature 36.4 C L 05/16/22 12:46 Pulse 88 05/16/22 12:46 Respiratory Rate 18 05/16/22 12:46 Blood Pressure 141/97 H 05/16/22 12:46 Pulse Oximetry 92 05/16/22 12:46 Temperature 36.4 C L 05/16/22 12:46 Temperature Source Temporal Artery Scan 05/16/22 12:46 Pulse 88 05/16/22 12:46 Respiratory Rate 18 05/16/22 12:46 Respiratory Effort 05/16/22 13:02 Blood Pressure 141/97 H 05/16/22 12:46 Blood Pressure Position Sitting 05/16/22 12:46 Pulse Oximetry 92 05/16/22 12:46 Oxygen Delivery Method Room Air 05/16/22 12:46 Oxygen Flow Rate 0 05/16/22 12:46 PAWSS Have you Been Recently Intoxicated or Drunk Within the Last 30 days?: No Have you Ever Experienced Previous Episodes of Alcohol Withdrawal?: No Have you ever Experienced Withdrawal Seizures?: No Have you ever Experienced Delirium Tremens(DT)s?: No Have you ever undergone Alcohol Rehabilitation Treatment (i.e, inpt ot outpatient treatment programs)?: No Have you ever Experienced Blackouts?: No Have you ever Combined Alcohol with other Downers within the last 90 days?: No Have you ever Combined Alcohol with any other Substance of Abuse during the last 90 days?: No Positive Blood Alcohol level on Presentation? [PCS.BAL]: No Evidence of Increased Autonomic Activity (i.e. HR>120, tremor, sweating, agitation, nausea)?: No Result: 0
[2022-05-16] MEDS: Albuterol/Ipratropium 3 ML UPD VIAL UPD (13:38)
[2022-05-16] MEDS: methylPREDNISolone SUCC 125 MG VIAL IVP (13:38)
[2022-05-16 13:47] LABS: Abs Immature Grans 0.08 10^3/uL (0.0-0.06); Absolute Basophil Count 0.03 10^3/uL (0.0-0.2); Absolute Monocyte Count 1.08 10^3/uL (0.1-0.8); Absolute Neutrophil Count 11.12 10^3/uL (1.2-6.7); Basophils % 0.2; HCT 41.6 % (40.0-50.0); HGB 14.8 g/dL (13.5-17.5); Immature Grans % 0.6; Lymphocytes % 5.5; MCH 32.7 pg (27.0-33.0); MCHC 35.6 % (32.0-36.0); MCV 92 fL (80-95); MPV 9.2 fL (8.0-11.0); Monocytes % 8.3; Neutrophils % 85.4; Platelet Count 247 10^3/uL (130-400); RBC 4.52 10^6/uL (4.36-5.78); RDW 12.2 % (11.8-14.1); RDW-SD 41.9 fL; WBC 13.02 10^3/uL (4.4-10.8)
[2022-05-16 13:48] LABS: Absolute Lymphocyte Count 0.72 10^3/uL (1.2-3.4); BE (Venous) 2 mmol/L (-2-3); HCO3 (Venous) 27 mmol/L (23-28); O2 Sat (Venous) 56 %; TCO2 (Venous) 24 mmol/L (24-29); pCO2 (Venous) 43 mmHg (41-51); pO2 (Venous) 29 mmHg
[2022-05-16 13:54] LABS: Source Nasal/Nares
[2022-05-16 14:14] LABS: ALT 35 U/L (16-63); AST 26 U/L (15-37); Alkaline Phosphatase 118 U/L (46-116); Anion Gap 9.9 mmol/L (3-11); BUN 12 mg/dL (7-18); Bilirubin, Total 0.7 mg/dL (0.2-1.0); CO2 27.1 mmol/L (21.0-32.0); Chloride 93 mmol/L (98-107); Glucose 128 mg/dL (74-106); Magnesium 1.5 mg/dL (1.8-2.4); Potassium 3.8 mmol/L (3.5-5.1); Sodium 130 mmol/L (136-145); Total Protein 8.4 g/dL (6.4-8.2); Troponin I < 50 ng/L (<or=60)
[2022-05-16 14:23] LABS: NT-proBNP 662 pg/mL (<300)
[2022-05-16 14:47] LABS: COVID-19 PCR Negative (Negative)
[2022-05-16] MEDS: Amoxicillin 875/Clav. 125 TAB PO (15:25)
[2022-05-16] MEDS: Albuterol HFA 8 GM 60 PUFF INH IH (15:25)
== END 2022-05-16 15:35 | disposition home or self-care (01) ==
PROVIDERS: Emergency Provider Emergency Medicine; PCP Nurse Practitioner Family
DX: J44.1 Chronic obstructive pulmonary disease with (acute) exacerbation (principal); E83.42 Hypomagnesemia; E87.1 Hypo-osmolality and hyponatremia; I10 Essential (primary) hypertension; S80.811A Abrasion, right lower leg, initial encounter; Z23 Encounter for immunization; Z20.822 Contact with and (suspected) exposure to COVID-19; Z87.891 Personal history of nicotine dependence; Z79.51 Long term (current) use of inhaled steroids; W22.8XXA Striking against or struck by other objects, initial encounter
CPT/HCPCS: 36415; 80053; 82805; 87635; 90471; 93005; 96374; 99285; 71045; 83735; 83880; 84484; 85025; 93010; J2930; J7620

== ENCOUNTER 2023-05-30 23:24 | Outpatient (REF) | payer MEDICARE, OTHER, SELFPAY | END 2023-05-30 23:25 | disposition home or self-care (01) | LOC: NCHCN 23:24 | PROVIDERS: PCP Nurse Practitioner Family; Visit Provider Nurse Practitioner Family | DX: S81.801A Unspecified open wound, right lower leg, initial encounter (principal); L08.89 Other specified local infections of the skin and subcutaneous tissue | CPT/HCPCS: 87070; 87205 ==

== ENCOUNTER → 2023-08-07 09:41 | Outpatient (BNVA) | payer MEDICARE, OTHER, SELFPAY | PROVIDERS: PCP Nurse Practitioner Family; Referring Provider Nurse Practitioner Family; Visit Provider Student in an Organized Health Care Education/Training Program | DX: J44.9 Chronic obstructive pulmonary disease, unspecified (principal); R91.1 Solitary pulmonary nodule; Z87.891 Personal history of nicotine dependence | CPT/HCPCS: 99214 ==

== ENCOUNTER 2023-12-12 15:22 | Outpatient (REF) | payer MEDICARE, OTHER, SELFPAY ==
[2023-12-12 20:19] LABS: ALT 46 U/L (16-63); AST 40 U/L (15-37); Albumin 4.3 g/dL (3.4-5.0); Alkaline Phosphatase 121 U/L (46-116); Anion Gap 8.8 mmol/L (3-11); BUN 12 mg/dL (7-18); Bilirubin, Total 1.3 mg/dL (0.2-1.0); CO2 24.2 mmol/L (21.0-32.0); Calcium 10.3 mg/dL (8.5-10.1); Calculated LDL 49 mg/dL (<100); Chloride 91 mmol/L (98-107); Cholesterol 160 mg/dL (<200); Estimated GFR 78.98 (mL/min/1.73m2); Glucose 106 mg/dL (74-106); HDL Cholesterol 105 mg/dL (40-60); Potassium 4.7 mmol/L (3.5-5.1); Total Protein 7.8 g/dL (6.4-8.2); Triglyceride 30 mg/dL (<150)
[2023-12-12 20:39] LABS: Sodium 124 mmol/L (136-145)
[2023-12-13 18:56] LABS: PSA, Screening 0.9 ng/mL (<=6.5)
== END 2023-12-12 15:23 | disposition home or self-care (01) ==
LOC: NCHCN 15:22
PROVIDERS: PCP Nurse Practitioner Family; Visit Provider Nurse Practitioner Family
DX: I10 Essential (primary) hypertension (principal); E78.5 Hyperlipidemia, unspecified; Z12.5 Encounter for screening for malignant neoplasm of prostate
CPT/HCPCS: 80053; 80061; 84153

== ENCOUNTER → 2024-02-04 10:45 | Outpatient (BNVA) | payer MEDICARE, OTHER, SELFPAY | PROVIDERS: PCP Nurse Practitioner Family; Referring Provider Nurse Practitioner Family; Visit Provider Physician Assistant Surgical | DX: J44.9 Chronic obstructive pulmonary disease, unspecified (principal); R91.1 Solitary pulmonary nodule; Z87.891 Personal history of nicotine dependence | CPT/HCPCS: 99214 ==

== ENCOUNTER → 2024-08-05 10:59 | Outpatient (BNVA) | payer MEDICARE, OTHER, SELFPAY | PROVIDERS: PCP Nurse Practitioner Family; Referring Provider Nurse Practitioner Family; Visit Provider Physician Assistant Surgical | DX: J44.9 Chronic obstructive pulmonary disease, unspecified (principal); R91.1 Solitary pulmonary nodule; Z87.891 Personal history of nicotine dependence | CPT/HCPCS: 99214 ==

== ENCOUNTER 2024-09-09 13:53 | Outpatient (REF) | payer MEDICARE, OTHER, SELFPAY ==
[2024-09-09 19:17] LABS: HCT 34.6 % (40.0-50.0); HGB 11.9 g/dL (13.5-17.5); MCH 32.6 pg (27.0-33.0); MCHC 34.4 % (32.0-36.0); MCV 95 fL (80-95); MPV 9.8 fL (8.0-11.0); Platelet Count 367 10^3/uL (130-400); RBC 3.65 10^6/uL (4.36-5.78); RDW 12.6 % (11.8-14.1); RDW-SD 43.8 fL; WBC 8.92 10^3/uL (4.4-10.8)
[2024-09-09 19:32] LABS: Anion Gap 10.2 mmol/L (3-11); BUN 19 mg/dL (7-18); CO2 25.8 mmol/L (21.0-32.0); CREATININE 1.2 mg/dL (0.70-1.30); Calcium 10.8 mg/dL (8.5-10.1); Chloride 101 mmol/L (98-107); Estimated GFR 63.46 (mL/min/1.73m2); Glucose 111 mg/dL (74-106); Potassium 4.7 mmol/L (3.5-5.1); Sodium 137 mmol/L (136-145)
== END 2024-09-09 13:54 | disposition home or self-care (01) ==
LOC: NCHCN 13:53
PROVIDERS: PCP Nurse Practitioner Family; Visit Provider Nurse Practitioner Family
DX: E87.1 Hypo-osmolality and hyponatremia (principal)
CPT/HCPCS: 80048; 85027

== ENCOUNTER 2025-01-28 17:45 | Outpatient (REF) | payer MEDICARE, OTHER, SELFPAY ==
[2025-01-28 20:12] LABS: HCT 35.7 % (40.0-50.0); HGB 12.4 g/dL (13.5-17.5); MCH 32.2 pg (27.0-33.0); MCHC 34.7 % (32.0-36.0); MCV 93 fL (80-95); MPV 9.4 fL (8.0-11.0); Platelet Count 263 10^3/uL (130-400); RBC 3.85 10^6/uL (4.36-5.78); RDW 13.2 % (11.8-14.1); RDW-SD 44.9 fL
[2025-01-28 21:33] LABS: ALT 36 U/L (16-63); AST 27 U/L (15-37); Albumin 4.2 g/dL (3.4-5.0); Alkaline Phosphatase 135 U/L (46-116); Anion Gap 13.6 mmol/L (3-11); BUN 15 mg/dL (7-18); Bilirubin, Total 0.6 mg/dL (0.2-1.0); CO2 22.4 mmol/L (21.0-32.0); CREATININE 1.1 mg/dL (0.70-1.30); Calcium 10.4 mg/dL (8.5-10.1); Calculated LDL 34 mg/dL (<100); Chloride 99 mmol/L (98-107); Cholesterol 172 mg/dL (<200); Estimated GFR 70.01 (mL/min/1.73m2); Glucose 100 mg/dL (74-106); HDL Cholesterol 102 mg/dL (>or=40); Potassium 4.3 mmol/L (3.5-5.1); Sodium 135 mmol/L (136-145); Total Protein 7.6 g/dL (6.4-8.2); Triglyceride 183 mg/dL (<150)
[2025-01-28 22:20] LABS: Hemoglobin A1C 5.5 % (<5.7)
== END 2025-01-28 17:46 | disposition home or self-care (01) ==
LOC: NCHCN 17:45
PROVIDERS: PCP Nurse Practitioner Family; Visit Provider Nurse Practitioner Family
DX: E78.5 Hyperlipidemia, unspecified (principal); R73.9 Hyperglycemia, unspecified
CPT/HCPCS: 80053; 80061; 85027; 83036